=== PATIENT | female | born 1940 | race Caucasian/White ===

== ENCOUNTER 2021-05-08 21:45 | Emergency (ER) | payer MEDICARE ==
[2021-05-08] MEDS ORDERED: Acetaminophen 500 MG TAB ONE (22:16)
[2021-05-08] MEDS ORDERED: Magnesium 2 GM/50 ML BAG (IN WATER) ONE (22:16)
[2021-05-08 23:04] LABS: #Monocytes 0.3 10x3/uL (0.0-1.1); %Basophils 0.3 % (0.0-2.0); %Eosinophils 0.3 % (0.0-6.0); %Lymphocytes 26.8 % (18.0-47.0); %Monocytes 5.7 % (0.0-10.0); %Neutrophils 66.7 % (40.0-75.0); Hemoglobin 12.3 g/dL (12.0-15.5); Mean Corpuscular HGB CONC 33.7 g/dL (32.0-36.0); Mean Corpuscular Hemoglobin 32.2 pg (27.0-33.0); Mean Corpuscular Volume 95.5 fl (81.6-98.3); Mean Platelet Volume 10.8 fl (7.4-10.4); Platelet Count 228 10x3/uL (150-450); RBC Distribution Width 13.1 % (11.5-14.5); Red Blood Cell (RBC) Count 3.82 10x6/uL (3.90-5.03)
[2021-05-08 23:12] LABS: Bilirubin Neg (Negative); Blood, Urine 25 (Negative); Glucose, Urine (Dipstick) Normal (Negative); Ketone, Urine Negative (Negative); Leukocyte 500 (Negative); Nitrite Negative (Negative); Protein, Urine (Dipstick) 15 mg/dl (Neg-Trace); Urobilinogen Normal mg/dL (Less than 2); pH, Urine 6.5 (5.0-9.0)
[2021-05-08 23:16] LABS: ALT (SGPT) 14 U/L (8-55); AST (SGOT) 29 U/L (5-34); Albumin 4.4 g/dL (3.4-4.8); Alkaline Phosphatase 73 U/L (40-110); Anion Gap 13 mmol/L (10-20); BUN (Urea Nitrogen) 24 mg/dL (9.8-20.1); Bilirubin, Total 0.4 mg/dL (0.2-1.2); CK (CPK) 68 U/L (29-168); Calc. Creatinine Clearance 0 mL/min (70-130); Calcium 9.7 mg/dL (7.8-10.44); Carbon Dioxide 27 mmol/L (23-31); Chloride 101 mmol/L (98-107); Globulin 4.5 g/dL (2.4-3.5); Glucose 128 mg/dL (83-110); Magnesium 2.2 mg/dL (1.6-2.6); Potassium 4.4 mmol/L (3.5-5.1); Protein, Total 8.9 g/dL (5.8-8.1); Sodium 137 mmol/L (136-145)
[2021-05-08 23:18] LABS: Clarity Hazy (Clear)
[2021-05-08 23:30] LABS: Mucous/LPF 2+ LPF (<2+)
[2021-05-08 23:31] LABS: Bacteria/HPF 3+ HPF (None Seen)
== END 2021-05-09 00:50 | disposition home or self-care (01) ==
LOC: CSHERS 21:45
DX: R53.1 Weakness (principal)
CPT/HCPCS: 70450; 71045; 80053; 81003; 81015; 82550; 83735; 84443; 84484; 85025; 93005; 96365; J3475

== ENCOUNTER 2021-05-11 12:23 | Observation (INO) | payer MEDICARE ==
[2021-05-11] MEDS ORDERED: Cefepime 2 GM VIAL ONE (13:56)
[2021-05-11 14:12] LABS: #Monocytes 0.7 10x3/uL (0.0-1.1); #Neutrophils 5.1 10x3/uL (1.5-8.4); %Basophils 0.2 % (0.0-2.0); %Eosinophils 0.5 % (0.0-6.0); %Monocytes 7.7 % (0.0-10.0); %Neutrophils 60.5 % (40.0-75.0); Mean Corpuscular HGB CONC 34.5 g/dL (32.0-36.0); Mean Corpuscular Hemoglobin 32.3 pg (27.0-33.0); Mean Corpuscular Volume 93.8 fl (81.6-98.3); Mean Platelet Volume 10.9 fl (7.4-10.4); Platelet Count 201 10x3/uL (150-450); RBC Distribution Width 12.5 % (11.5-14.5); Red Blood Cell (RBC) Count 3.71 10x6/uL (3.90-5.03); White Blood Cell (WBC) Count 8.5 10x3/uL (3.5-10.5)
[2021-05-11] MEDS ORDERED: VANCOMYCIN 1.25 GM/250 ML BAG 1.25 GM in Premix Bag 1 BAG IVPB SCH (14:15)
[2021-05-11 14:24] LABS: PTT 23.7 sec (22.0-33.0); Prothrombin Time 11.1 sec (9.5-12.1)
[2021-05-11 14:37] LABS: ALT (SGPT) 27 U/L (8-55); AST (SGOT) 29 U/L (5-34); Alkaline Phosphatase 64 U/L (40-110); Anion Gap 10 mmol/L (10-20); BUN (Urea Nitrogen) 17 mg/dL (9.8-20.1); Bilirubin, Total 0.4 mg/dL (0.2-1.2); CK (CPK) 55 U/L (29-168); Calc. Creatinine Clearance 0 mL/min (70-130); Calcium 8.9 mg/dL (7.8-10.44); Carbon Dioxide 30 mmol/L (23-31); Chloride 99 mmol/L (98-107); Globulin 3.7 g/dL (2.4-3.5); Glucose 91 mg/dL (83-110); Potassium 3.1 mmol/L (3.5-5.1); Protein, Total 7.7 g/dL (5.8-8.1); Sodium 136 mmol/L (136-145)
[2021-05-11 15:09] LABS: Bilirubin Neg (Negative); Blood, Urine Negative (Negative); Clarity Clear (Clear); Glucose, Urine (Dipstick) Normal (Negative); Ketone, Urine Negative (Negative); Leukocyte Negative (Negative); Nitrite Negative (Negative); Protein, Urine (Dipstick) Negative (Neg-Trace); Urobilinogen Normal mg/dL (Less than 2); pH, Urine 6.5 (5.0-9.0)
[2021-05-11] MEDS ORDERED: Potassium Chloride 20 MEQ TAB PO SCH (16:30)
[2021-05-11] MEDS ORDERED: Acetaminophen 325 MG TAB PO PRN (17:01)
[2021-05-11] MEDS ORDERED: Ondansetron PF 4 MG/2 ML Vial IVP PRN (17:01)
[2021-05-11] MEDS ORDERED: Ondansetron ODT 4 MG TAB PO PRN (17:01)
[2021-05-11] MEDS ORDERED: Acetaminophen 650 MG Suppository PR PRN (17:01)
[2021-05-11 17:50] VITALS: BMI 21.6
[2021-05-11] MEDS ORDERED: Aspirin 81 mg Enteric Coated Tablet PO SCH (18:30)
[2021-05-11 19:01] LABS: Magnesium 2.1 mg/dL (1.6-2.6)
[2021-05-11 19:54] LABS: Syphilis Antibody Nonreactive (Nonreactive); Syphilis Antibody Index 0.08 S/CO (<1.00 Non-Reactive)
[2021-05-11] MEDS: Atorvastatin Calcium 40 MG TAB PO SCH (20:12)
[2021-05-11] MEDS: Melatonin 3 MG TAB PO PRN (20:15)
[2021-05-11 21:28] LABS: SARS-CoV-2 NAA Rapid Test Not Detected (NotDetected)
[2021-05-12 06:43] LABS: #Eosinphils 0.1 10x3/uL (0.0-0.5); #Monocytes 0.7 10x3/uL (0.0-1.1); %Basophils 0.6 % (0.0-2.0); %Eosinophils 1.7 % (0.0-6.0); %Lymphocytes 30.7 % (18.0-47.0); %Monocytes 9.7 % (0.0-10.0); %Neutrophils 57.2 % (40.0-75.0); Hemoglobin 11.2 g/dL (12.0-15.5); Mean Corpuscular HGB CONC 33.4 g/dL (32.0-36.0); Mean Corpuscular Hemoglobin 31.5 pg (27.0-33.0); Mean Corpuscular Volume 94.1 fl (81.6-98.3); Mean Platelet Volume 11.7 fl (7.4-10.4); Platelet Count 191 10x3/uL (150-450); RBC Distribution Width 12.5 % (11.5-14.5); Red Blood Cell (RBC) Count 3.56 10x6/uL (3.90-5.03); White Blood Cell (WBC) Count 6.9 10x3/uL (3.5-10.5)
[2021-05-12 06:55] LABS: Anion Gap 11 mmol/L (10-20); BUN (Urea Nitrogen) 14 mg/dL (9.8-20.1); Calc. Creatinine Clearance 61 mL/min (70-130); Calcium 8.5 mg/dL (7.8-10.44); Carbon Dioxide 27 mmol/L (23-31); Chloride 104 mmol/L (98-107); Glucose 86 mg/dL (83-110); Potassium 3.7 mmol/L (3.5-5.1); Sodium 138 mmol/L (136-145)
[2021-05-12] MEDS: Aspirin 81 mg Enteric Coated Tablet PO SCH (08:16)
[2021-05-12] MEDS: Melatonin 3 MG TAB PO PRN (20:42)
[2021-05-12] MEDS: Atorvastatin Calcium 40 MG TAB PO SCH (20:42)
[2021-05-13 05:11] LABS: Anion Gap 11 mmol/L (10-20); BUN (Urea Nitrogen) 18 mg/dL (9.8-20.1); Calc. Creatinine Clearance 57 mL/min (70-130); Calcium 8.8 mg/dL (7.8-10.44); Carbon Dioxide 27 mmol/L (23-31); Chloride 104 mmol/L (98-107); Glucose 99 mg/dL (83-110); Potassium 3.6 mmol/L (3.5-5.1); Sodium 138 mmol/L (136-145)
[2021-05-13 05:25] LABS: #Eosinphils 0.1 10x3/uL (0.0-0.5); #Monocytes 0.7 10x3/uL (0.0-1.1); #Neutrophils 3.7 10x3/uL (1.5-8.4); %Basophils 0.5 % (0.0-2.0); %Lymphocytes 31.1 % (18.0-47.0); %Monocytes 10.6 % (0.0-10.0); %Neutrophils 55.6 % (40.0-75.0); Hemoglobin 11.9 g/dL (12.0-15.5); Mean Corpuscular HGB CONC 34.4 g/dL (32.0-36.0); Mean Corpuscular Hemoglobin 32.1 pg (27.0-33.0); Mean Corpuscular Volume 93.3 fl (81.6-98.3); Mean Platelet Volume 11.3 fl (7.4-10.4); Platelet Count 191 10x3/uL (150-450); RBC Distribution Width 12.6 % (11.5-14.5); Red Blood Cell (RBC) Count 3.71 10x6/uL (3.90-5.03); White Blood Cell (WBC) Count 6.6 10x3/uL (3.5-10.5)
[2021-05-13] MEDS ORDERED: Escitalopram Oxalate 10 mg Tablet PO SCH (09:00)
[2021-05-13] MEDS: Aspirin 81 mg Enteric Coated Tablet PO SCH (09:09)
[2021-05-13 14:17] VITALS: BP 121/69; TEMP 98.7
[2021-05-16 17:41] LABS: ANA Symphony (Qualitative) Negative (Negative); ANA Symphony (Quantitative) 0.4 Ratio (< 0.7 Negative); dsDNA IgG Antibody 2.7 IU/mL (<10 Negative)
== END 2021-05-13 13:32 | disposition home or self-care (01) ==
LOC: CSHERS 12:23 → UNDOADMOB 15:20 → CSHTELE 15:20
PROVIDERS: ADMIT Hospitalist; ATTEND Hospitalist
DX: G93.41 Metabolic encephalopathy (principal); R55 Syncope and collapse; E87.6 Hypokalemia; I10 Essential (primary) hypertension; Z20.822 Contact with and (suspected) exposure to COVID-19
CPT/HCPCS: 0240U; 51701; 70551; 71045; 80048 ×2; 80053; 81003; 82533; 82550; 82607; 82746; 83605; 83735; 84443; 84484; 85025 ×3; 85610; 85730; 86038; 86225; 86780; 87040; 87086; 93005; 93306; 93880; 94760 ×2; 96365; 96366; 96368; 97139 ×3; 97535; 99285; G0378 ×4; 36415; J0692; J3370

== ENCOUNTER 2021-12-27 15:43 | Observation (INO) | payer MEDICARE ==
[2021-12-27 16:25] LABS: #Eosinphils 0.1 10x3/uL (0.0-0.5); #Monocytes 0.5 10x3/uL (0.0-1.1); #Neutrophils 3.3 10x3/uL (1.5-8.4); %Basophils 0.6 % (0.0-2.0); %Eosinophils 1.8 % (0.0-6.0); %Lymphocytes 37.5 % (18.0-47.0); %Monocytes 7.4 % (0.0-10.0); %Neutrophils 52.5 % (40.0-75.0); Hemoglobin 11.3 g/dL (12.0-15.5); Mean Corpuscular HGB CONC 33.4 g/dL (32.0-36.0); Mean Corpuscular Hemoglobin 31.8 pg (27.0-33.0); Mean Corpuscular Volume 95.2 fl (81.6-98.3); Mean Platelet Volume 10.6 fl (7.4-10.4); Platelet Count 267 10x3/uL (150-450); RBC Distribution Width 13.4 % (11.5-14.5); Red Blood Cell (RBC) Count 3.55 10x6/uL (3.90-5.03); White Blood Cell (WBC) Count 6.2 10x3/uL (3.5-10.5)
[2021-12-27 16:31] LABS: ALT (SGPT) 12 U/L (8-55); AST (SGOT) 15 U/L (5-34); Alkaline Phosphatase 68 U/L (40-110); Anion Gap 14 mmol/L (10-20); BUN (Urea Nitrogen) 27 mg/dL (9.8-20.1); Bilirubin, Total 0.3 mg/dL (0.2-1.2); Calc. Creatinine Clearance 0 mL/min (70-130); Calcium 9.6 mg/dL (7.8-10.44); Carbon Dioxide 24 mmol/L (23-31); Chloride 103 mmol/L (98-107); Estimated GFR 83; Globulin 3.3 g/dL (2.4-3.5); Glucose 88 mg/dL (83-110); Potassium 4.4 mmol/L (3.5-5.1); Protein, Total 7.3 g/dL (5.8-8.1); Sodium 137 mmol/L (136-145)
[2021-12-27] MEDS ORDERED: Nitroglycerin 2% Ointment 1 INCH/1 GM Packet ONE (16:41)
[2021-12-27] MEDS ORDERED: Senokot S 8.6-50 MG TAB PO PRN (17:25)
[2021-12-27] MEDS ORDERED: Acetaminophen 325 MG TAB PO PRN (17:25)
[2021-12-27] MEDS ORDERED: HYDROcodone/Acetaminophen 5/325 mg Tablet PO PRN (17:25)
[2021-12-27] MEDS ORDERED: Calcium Carbonate 500 MG ChewTAB PO PRN (17:25)
[2021-12-27] MEDS ORDERED: hydrALAZINE 20 MG/ML VIAL SLOW IVP PRN (17:27)
[2021-12-27] MEDS ORDERED: Cyclobenzaprine 10 MG TAB PO PRN (17:36)
[2021-12-27] MEDS ORDERED: Cyclobenzaprine 10 MG TAB PO SCH (18:00)
[2021-12-27 18:12] LABS: SARS-CoV-2 NAA Rapid Test Not Detected (NotDetected)
[2021-12-27 19:35] LABS: Troponin I Less than 0.010 ng/mL (< 0.028)
[2021-12-27 21:57] VITALS: BMI 24.0
[2021-12-27 22:49] LABS: Troponin I Less than 0.010 ng/mL (< 0.028)
[2021-12-28 05:14] LABS: #Eosinphils 0.2 10x3/uL (0.0-0.5); #Monocytes 0.5 10x3/uL (0.0-1.1); %Basophils 0.8 % (0.0-2.0); %Eosinophils 3.6 % (0.0-6.0); %Lymphocytes 49.7 % (18.0-47.0); %Monocytes 9.1 % (0.0-10.0); Hemoglobin 11.3 g/dL (12.0-15.5); Mean Corpuscular HGB CONC 34.3 g/dL (32.0-36.0); Mean Corpuscular Hemoglobin 31.9 pg (27.0-33.0); Mean Corpuscular Volume 92.9 fl (81.6-98.3); Mean Platelet Volume 10.5 fl (7.4-10.4); Platelet Count 259 10x3/uL (150-450); RBC Distribution Width 13.6 % (11.5-14.5); Red Blood Cell (RBC) Count 3.54 10x6/uL (3.90-5.03); White Blood Cell (WBC) Count 5.3 10x3/uL (3.5-10.5)
[2021-12-28 05:15] LABS: #Neutrophils 1.9 10x3/uL (1.5-8.4); %Neutrophils 36.8 % (40.0-75.0)
[2021-12-28 05:26] LABS: Anion Gap 10 mmol/L (10-20); BUN (Urea Nitrogen) 21 mg/dL (9.8-20.1); Calc. Creatinine Clearance 61 mL/min (70-130); Calcium 9.7 mg/dL (7.8-10.44); Carbon Dioxide 29 mmol/L (23-31); Cardiac Risk 4.7 (Less than 4.5); Chloride 106 mmol/L (98-107); Cholesterol 205 mg/dl (< 200 Desired); Estimated GFR 82; Glucose 88 mg/dL (83-110); HDL Cholesterol 44 mg/dL (>60 Neg Risk); LDL Cholesterol, Calculated 144 mg/dL; Sodium 141 mmol/L (136-145); Triglycerides 86 mg/dL (Less than 150)
[2021-12-28] MEDS ORDERED: Amlodipine 5 MG TAB PO SCH (09:00)
[2021-12-28 12:38] VITALS: TEMP 98.8
[2021-12-28 15:03] VITALS: BP 124/62
== END 2021-12-28 17:25 | disposition home or self-care (01) ==
LOC: CSHERS 15:43 → CSHTELE 18:22 → INTOOBSV 18:22
PROVIDERS: ADMIT Family Medicine; ATTEND Family Medicine
DX: R07.89 Other chest pain (principal); I10 Essential (primary) hypertension; F03.90 Unspecified dementia, unspecified severity, without behavioral disturbance, psychotic disturbance, mood disturbance, and anxiety; K21.9 Gastro-esophageal reflux disease without esophagitis; M54.9 Dorsalgia, unspecified; F41.9 Anxiety disorder, unspecified; F32.A Depression, unspecified; Z20.822 Contact with and (suspected) exposure to COVID-19; Z79.82 Long term (current) use of aspirin; Z79.899 Other long term (current) drug therapy; Z98.890 Other specified postprocedural states
CPT/HCPCS: 71045; 80048; 80053; 80061; 84443; 84484 ×2; 85025 ×2; 93005; 93306; 97116; 99285; U0002; 36415; G0378